=== PATIENT | female | born 1990 | race Two or more races ===

== ENCOUNTER 2018-06-18 08:32 | Emergency (ER) | payer BC ==
--- OUTSIDE RECORDS SUMMARY | 2018-06-18 08:37 | XMS REPORT | Continuity of Care Document ---
:1990 External Reference #:[id number] Author Name DharmeshMaikel morrisie Care Team Providers Name Role Phone Joellen Robbins MD Primary Care Physician Unavailable Payers Type Date Identification Numbers Payment Provider Subscriber Policy Number: [id number] [employer] Abeba Pickens PayID: [id number] [address] [address] [place] [address] Effective: 2015 Policy Number: [id number] [employer] Ppo Abeba Pickens Expires: 2016 PayID: [id number] [address] [address] [place] [address] Advance Directives Description No Information Available Problems Date Description Provider Status Onset: 05/31/2015 History of iron deficiency Jarrett Colin NP Resolved Resolved: 06/02/2017 Family History Date Family Member(s) Problem(s) Comments Father MO 60's Father 66 Onset: (age 62 Years) Mother Alcoholism Siblings 1 Brother, no issues, 28 Social History Type Date Description Comments Sex Unknown Marital Status Single Lives With Boyfriend 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 Allergies, Adverse Reactions, Alerts Description No Known Drug Allergies Medications Medication Date Status Form Strength Qnty SIG Indications Ordering Provider Ventolin HFA 06/03/ Active Aerosol 108(90Base 8units 1-2 puffs J45.909 Jarrett 2018 ) mcg/Act by mouth NATALIE Colin every 4-6 hours as needed. Alyacen 11/15/ 00/00/ Active Tablets 0.5/0.75/1 1 by Unknown 0000 -35 mg-mcg mouth every day Levofloxacin 06/10/ Hx Tablets 500mg 10tabs one by J01.90 Jarrett 2017 - mouth NATALIE Colin 06/20/ daily for 2017 10 days Augmentin 06/04/ Hx Tablets 875-125mg 20tabs 1 tablet J01.90 Jarrett 2017 - by mouth NATALIE Colin 06/10/ q12 hours 2017 for 10 days Fluticasone 06/04/ Hx Suspension 50mcg/Act 16gm 2 sprays J01.90 Jarrett Propionate 2016 - each NATALIE Colin 06/11/ nostril 2017 qd x 2 weeks Medications Administered in Office Medication Date Status Form Strength Qnty SIG Indications Ordering Provider PPD Administered Injection Jarrett Dixie, 7 DUST COLLECTOR OPERATOR PPD Administered Injection Jarrett Dixie, 6 DUST COLLECTOR OPERATOR Immunizations CPT Code Status Date Vaccine Lot # [id number] Given 02/14/2018 Influenza Virus Vaccine, Quadrivalent, Split, Preservative Free [id number] Given 05/12/2017 Influenza Virus Vaccine, Quadrivalent, Split, Preservative Free Vital Signs Date Vital Result Comment 06/03/2018 3:34pm Height 67.5 inches 5'7.50" Weight 146.25 lb Heart Rate 67 /min BP Systolic 111 mmHg BP Diastolic 67 mmHg Body Temperature 98.4 F O2 % BldC Oximetry 98 % BMI (Body Mass Index) 22.6 kg/m2 06/02/2017 9:09am Height 67.5 inches 5'7.50" Weight 142.00 lb Heart Rate 88 /min BP Systolic Sitting 110 mmHg BP Diastolic Sitting 60 mmHg Respiratory Rate 14 /min O2 % BldC Oximetry 98 % BMI (Body Mass Index) 21.9 kg/m2 06/04/2016 9:02am Height 67.5 inches 5'7.50" Weight 139.00 lb Heart Rate 110 /min BP Systolic Sitting 112 mmHg BP Diastolic Sitting 68 mmHg Body Temperature 98.9 F O2 % BldC Oximetry 98 % BMI (Body Mass Index) 21.4 kg/m2 05/31/2015 8:57am Height 67.25 inches 5'7.25" Weight 135.00 lb Heart Rate 76 /min BP Systolic Sitting 106 mmHg BP Diastolic Sitting 71 mmHg Body Temperature 96.9 F O2 % BldC Oximetry 98 % BMI (Body Mass Index) 21.0 kg/m2 Results Test Date Facility Test Result H/L Range Note Lipid Profile 06/04/2017 [facility] Triglycerides 81 mg/dL 1 (Trig/Chol/HDL) [address] [place] [address] [phone] Cholesterol 228 mg/dL 2 HDL Cholesterol 72.8 mg/dL 3 LDL Cholesterol 139 mg/dL 4 HIV 1/2 AB 06/04/2017 [facility] HIV 1 2 Nonreactive Nonreactive [address] [place] [address] [phone] Laboratory 06/04/2017 [facility] Glucose 85 mg/dL N 70-100 test finding [address] [place] [address] [phone] Quantiferon 06/04/2017 [facility] M tuberculosis Negative Negative 6 Gold TB [address] [address] [phone] TB Ag minus Nil Result 0 IU/mL TB Mitogen minus Nil Result 8.92 IU/mL TB Nil Result 0.01 IU/mL 7 CBC Auto Diff 06/02/2015 [facility] White Blood 4.8 10^3/uL N 3.5-10.[address] [place] [address] [phone] Red Blood Count 4.86 10^6/uL N 4.0-5.4 Hemoglobin 14.2 g/dL N 12.0-16.0 Hematocrit 43 % N 35-47 Mean Corpuscular Volume 88 fL N 80-97 Mean Corpuscular Hemoglobin 29 pg N 27-31 Mean Corpuscular HGB Conc 33 g/dL N 31-36 Red Cell Distribution Width 13 % N 10.5-15 Platelet Count 262 10^3/uL N 150-450 Mean Platelet Volume 8 um3 N 7.4-10.4 Abs Neutrophils 2.4 10^3/uL N 1.5-7.7 Abs Lymphocytes 1.9 10^3/uL N 1.0-4.8 Abs Monocytes 0.4 10^3/uL N 0-0.8 Abs Eosinophils 0.1 10^3/uL N 0-0.6 Abs Basophils 0 10^3/uL N 0-0.2 Abs Nucleated RBC 0 10^3/uL N Granulocyte % 49.1 % N 38-83 Lymphocyte % 39.6 % N 25-47 Monocyte % 7.4 % N 1-9 Eosinophil % 3.0 % N 0-6 Basophil % 0.9 % N 0-2 Nucleated Red Blood Cells % 0.1 N Iron & Iron Binding 06/02/2015 [facility] Iron 98 g/dL N 50- 212 [address] [place] [address] [phone] Unsaturated Iron Binding 491 g/dL N Total Iron Binding Capacity 589 g/dL High 250-450 % Iron Saturation 17 % N 15-55 Vitamin B12 And 06/02/2015 [facility] Vitamin B12 382 pg/mL N 180-914 8 Folate Serum [address] [place] [address] [phone] Folic Acid (Folate) > 20.00 ng/mL N >3.99 9 Lipid Profile 06/02/2015 [facility] Triglycerides 82 mg/dL N 10 (Trig/Chol/HDL) [address] [place] [address] [phone] Cholesterol 234 mg/dL N 11 HDL Cholesterol 59.4 mg/dL N 12 LDL Cholesterol 158 mg/dL N 13 1 Desirable: <150 Borderline High: 150-199 High: 200-499 Very High: >500 2 Desirable: <200 Borderline High: 200-239 High: >239 3 Low: <40 Desirable: 40-60 High: >60 4 Desirable: <100 Near Optimal: 100-129 Borderline High: 130-159 High: 160-189 Very High: >189 5 It is recognized that currently available assays for the detection of antibodies to HIV-1 and/or HIV-2 may not detect all infected individuals. HIV antibodies may be undetectable in some stages of the infection and in some clinical conditions. The performance of this assay has not been established for populations of infants or children. Assayed by Chemiluminescence Microparticle Immunoassay on the Siemens Advia Centaur CP. Values obtained with different methods or kits cannot be used interchangeably.The diagnostic specificity of the ADVIA Centaur 1/O/2 Enhanced assay in the low risk population was 99.90% (6052/6058) with a 95% confidence interval of 99.78 to 99.96%. 6 No interferon-gamma response to M. tuberculosis antigens was detected. Infection with M. tuberculosis is unlikely. A negative result alone does not exclude infection with M. tuberculosis. For detailed information regarding test interpretation see: [email or web address] 7 Test Performed by: [facility] [address] [place] [address] 8 Normal Range 180 to 914 Indeterminate Range 145 to 180 Deficient Range <145 9 FASTING 10 HOUR 10 Desirable <150 Borderline high 150-199 High 200-499 Very High >500 11 Desirable <200 Borderline high 200-239 High >239 12 Low <40 Desirable: 40-60 High: >60 13 Desirable: <100 mg/dL Near Optimal: 100-129 mg/dL Borderline High: 130-159 mg/dL High: 160-189 mg/dL Very High: >189 mg/dL Procedures Description No Information Available Encounters Type Date Location Provider Dx Diagnosis Office Visit 06/02/2017 [facility] Joellen Robbins Z00.00 Encntr for 9:10a Medicine - M.D. general adult [facility] medical exam w/o abnormal findings E78.00 Pure hypercholesterolemia, unspecified Z11.4 Encounter for screening for human immunodeficiency virus Z13.1 Encounter for screening for diabetes mellitus Office Visit 06/04/2016 9:00a [facility] Jarrett Colin Z00.01 Encounter for Medicine - DUST COLLECTOR OPERATOR general adult [place] medical exam w abnormal findings J01.90 Acute sinusitis, unspecified Z74.1 Need for assistance with personal care Z11.1 Encounter for screening for respiratory tuberculosis Office Visit 05/31/2015 8:40a [facility] Jarrett Colin Z00.00 Encntr for Medicine - DUST COLLECTOR OPERATOR general adult [place] medical exam w/o abnormal findings Z11.1 Encounter for screening for respiratory tuberculosis D64.9 Anemia, unspecified Z13.220 Encounter for screening for lipoid disorders Plan of Treatment 06/03/2018 - Jarrett Colin NPZ00.00 Encounter for general adult medical examination without abnoComments:VACCINES:Flu shot recommended every year in the fall.Tetanus booster is recommended every 10 years. You are up to date until 2022 unless you sustain a significant injury. SCREENING:Monthly self breast exams recommendedHIV/STD screening offered yearly. Pap: Per certified real estate appraiser.Z11.1 Encounter for screening for respiratory tuberculosisComments:You had your PPD placed today. You will need to return on Friday after 4 to have that read.Bring a copy of your immunization records when you come.Immunizations/Injections: PPDJ45.909 Unspecified asthma, uncomplicatedNew Medication:Ventolin HFA 108(90 Base) mcg/Act - 1-2 puffs by mouth every 4-6 hours as needed.
[2018-06-18 08:42] VITALS: BP 113/78
--- NOTE | 2018-06-18 10:38 | UC ---
Lower Extremity/Ankle HPI - HPI Summary HPI Summary: left foot injury from falling from a rock climbing wall onto a padded floor yesterday. pain at the MTP joint and first toe. Negative x ray. x ray reading: Negative for fracture or malalignment. Mild soft tissue swelling at the level of the first metatarsal phalangeal joint. Preserved joint spaces. - History of Current Complaint Chief Complaint: UCLowerExtremity Stated Complaint: L FOOT INJURY Time Seen by Provider: 06/18/18 08:50 Hx Last Menstrual Period: 06/12/18 Pain Intensity: 5 - Allergies/Home Medications Allergies/Adverse Reactions: Allergies Allergy/AdvReac Type Severity Reaction Status Date / Time No Known Allergies Allergy Verified 06/18/18 08:43 PMH/Surg Hx/FS Hx/Imm Hx Previously Healthy: Yes - Surgical History Surgical History: None - Family History Known Family History: Positive: Cardiac Disease - Social History Occupation: Employed Full-time - physical therapist Alcohol Use: Occasionally Substance Use Type: None Smoking Status (MU): Never Smoked Tobacco Review of Systems All Other Systems Reviewed And Are Negative: Yes Constitutional: Positive: Negative Skin: Positive: Negative Eyes: Positive: Negative ENT: Positive: Negative Respiratory: Positive: Negative Cardiovascular: Positive: Negative Gastrointestinal: Positive: Negative Genitourinary: Positive: Negative Motor: Positive: Negative Neurovascular: Positive: Negative Musculoskeletal: Positive: Other: - left foot pain Neurological: Positive: Negative Psychological: Positive: Negative Physical Exam Triage Information Reviewed: Yes Vital Signs: Initial Vital Signs Temp 98 F 06/18/18 08:39 Pulse 74 06/18/18 08:39 Resp 16 06/18/18 08:39 BP 113/78 06/18/18 08:39 Pulse Ox 99 06/18/18 08:39 Eye Exam: Normal ENT Exam: Normal Dental Exam: Normal Neck exam: Normal Neck: Positive: 1 Respiratory Exam: Normal Cardiovascular Exam: Normal Abdominal Exam: Normal Musculoskeletal Exam: Normal Musculoskeletal: Positive: Other: - left foot, tender in area of first toe; no evidence fracture or bruising; tender with palpation and ambulation. Neurological Exam: Normal Psychological Exam: Normal Skin Exam: Normal Lower Extremity Course/Dx - Course Course Of Treatment: Left foot injury from falling from a rock climbing wall onto a padded floor yesterday. Pain at the MTP joint and first toe. Negative x ray. Dx is left foot contusion, distal. Injury to bone and soft tissue strain. x ray reading: Negative for fracture or malalignment. Mild soft tissue swelling at the level of the. first metatarsal phalangeal joint. Preserved joint spaces. - Differential Dx/Diagnosis Differential Diagnosis/HQI/PQRI: Fracture (Closed), Sprain, Strain Provider Diagnosis: Contusion Discharge - Sign-Out/Discharge Documenting (check all that apply): Patient Departure All imaging exams completed and their final reports reviewed: Yes - Discharge Plan Condition: Stable Disposition: HOME Patient Education Materials: Foot Contusion (ED) Referrals: Jarrett Colin NP [Primary Care Provider] - Additional Instructions: WE DISCUSSED: PLEASE SEEK CARE AT THE EMERGENCY DEPARTMENT IF SYMPTOMS WORSEN OR IF NEW SYMPTOMS DEVELOP. FOLLOW UP WITH YOUR PRIMARY CARE PHYSICIAN IF CONDITION CONTINUES BEYOND 3 DAYS WITHOUT IMPROVEMENT. YOUR DIAGNOSIS IS: CONTUSION LEFT FOOT, under joint YOUR PRESCRIPTION RECOMMENDATION IS: NONE OTHER INSTRUCTIONS: MEHRAN TAPE; USE BOOT; WARM MOIST HEAT IN MORNING; ICE, ELEVATE DURING THE DAY. For pain: Ibuprofen (Motrin and other brand names) 400-600mg PLUS acetaminophen (Tylenol and other brand names) 500mg - 1000mg every 8 hours. Maximum is 3 doses a day. If this dosage is required for more than 5 days, you should re-check with your doctor. The combination of these two over-the- counter medications can be more effective than each one taken alone. Please check with the pharmacist if you have questions about your allergies to these medications. - Billing Disposition and Condition Condition: STABLE Disposition: Home
== END 2018-06-18 10:54 | disposition home or self-care (01) ==
LOC: UCEAST 08:32
DX: S90.32XA Contusion of left foot, initial encounter (principal); W17.89XA Other fall from one level to another, initial encounter; Y93.31 Activity, mountain climbing, rock climbing and wall climbing; Y92.9 Unspecified place or not applicable
CPT/HCPCS: 99212; G0463